=== PATIENT | male | born 1960 ===

== ENCOUNTER 2021-12-08 12:16 | Inpatient (IN) | payer OTHER ==
[~2021-12-08] VITALS: Wt 85.1 kg
[2021-12-08 15:53] LABS: PCO2 Arterial 34.1 mmHg (35-45); PO2 Arterial 101 mmHg (80-100); pH Blood Arterial 7.09 (7.35-7.45)
[2021-12-08 16:16] LABS: Hematocrit 37.8 % (37.0-53.0); Hemoglobin 12.5 g/dL (13.5-17.5); Mean Corpuscular HGB Conc 33.1 g/dL (31.5-36.5); Mean Corpuscular Volume 97 fL (80-100); Platelet Count 180 K/mm3 (150-400); RDW Standard Deviation 42.6 fL (35.1-46.3); Red Blood Cell Count 3.91 M/mm3 (4.30-5.90); White Blood Cell Count 6.65 K/mm3 (4.00-11.30)
[2021-12-08 16:36] LABS: Albumin, Blood 1.9 g/dL (3.4-5.0); Albumin/Globulin Ratio 1.1 (0.8-1.8); Bilirubin, Total 0.8 mg/dL (0.1-1.0); Bun/Creatinine Ratio 23.5 (12.0-20.0); Calcium, Blood 7.2 mg/dL (8.5-10.1); Creatinine, Blood 1.87 mg/dL (0.60-1.20); Globulin, Blood 1.7 g/dL (2.2-4.0); Potassium, Blood 4.9 mmol/L (3.5-5.5); Total Protein, Blood 3.6 g/dL (6.4-8.2)
--- NOTE | 2021-12-08 16:40 | NUR ---
SUMMARY NEURO; PT INTERMITTENTLY DECORTICATE POSTURING WITH BUE, BLE DECORTICATE WITH PAIN. NO BABINSKI RESPONSE. LEFT PUPIL SLUGGISH, RIGH PUPIL BRISK. WHEN TRYING TO ELICIT A COUGH, CORNEAL OR GAG REFLEX PT JUST POSTURES IN RESPONSE. PRIAPISM DUE TO PENIS PUMP. NEGATIVE HEAD CT IN [place]. LUNGS; PT IS ON AC/VC 16/450/50/P5 CARDIAC: PT IS ON LEVO OF 30, EPI 3, VASO.04, A BICARB DRIP OF 150MEQ/10ML/HR. PT WAS A WITNESSED ARREST OF APPROX 3040 MINUTES, CAME TO ER BY 10AM THEN TRANSFERRED FROM [place] TO [facility]. PT STARTED COOLING AT 1555 WITH ZOLL QUATRO CATHETER. PT INITIALLY HAD A LACTIC OF 23 AND HAS RECIEVED A TOTAL OF 4L NS VIA BOLUS. SKIN; PT HAS SUTURES ON LEFT EAR, ORAL TRAUMA, COOL TO TOUCH GI/; TEMP POTTS IN PLACE. NG TO LEFT NARE LIWS, BOWELS FULL OF STOOL PER [place] CT, ESOPHAGEAL TEMP CORD IN PLACE. PT MAY POSSIBLY HAVE POLST FORM WITH [facility] PER PT'S . PER CONTINUE WITH FULL CODE AT THIS TIME
[2021-12-08 17:21] LABS: BAND PERCENT MAN 32 % (0-8); BASOPHILS PERCENT MAN 0 % (0-2); EOSINOPHILS ABSOLUTE MAN 0.06 K/mm3 (0.00-0.68); EOSINOPHILS PERCENT MAN 1 % (0-6); LYMPHOCYTES % ATYPICAL MANUAL 1 % (0-0); LYMPHOCYTES ABSOLUTE MAN 1.52 K/mm3 (0.84-5.20); LYMPHOCYTES PERCENT MAN 22 % (21-46); METAMYELOCYTE ABSOLUTE MAN 0.73 K/mm3 (0.00-0.00); METAMYELOCYTE PERCENT MAN 11 % (0-0); MONOCYTES ABSOLUTE MAN 0.39 K/mm3 (0.16-1.47); MONOCYTES PERCENT MAN 6 % (4-13); NEUTROPHILS ABSOLUTE MAN 3.92 K/mm3 (1.96-9.15); SEG NEUTROPHILS PERCENT MAN 27 % (41-73); TOTAL CELLS COUNTED 100
[2021-12-08 17:49] LABS: International Normalized Ratio 1.67
--- NOTE | 2021-12-08 18:15 | NUR ---
COOLING STOPPED DUE TO COPIOUS BLEEDING AT FEM ACCESS SITES
--- NOTE | 2021-12-08 18:35 | NUR ---
Spiritual Care Visit. At the request of Palliative Care visited Pt. Pt. is unresponsive. Provided an EOL blessing that was requested by the family via Palliative Care.
--- NOTE | 2021-12-08 19:13 | NUR ---
Dr apple reviewed pt care and prognosis with .She understood his failty and possible demeise. Spoke with her after doctor spoke for theraputic conversation. She cannot drive at night reass[place] reafirmed that he would want her safe. confirmed he was DNr she states he has [facility] documents will request copies. We reviesd recussitation just to make sure she understoodShe understood the futility of more cpr. Advised her we will be with him. Sent chaplian to see him as she relayed they are devoute christians. Bedside assessment large pupils appears to be postuing. Stuggling with grain site ooozin and bleeding. pt on pressor support. kps score 10%. advised if urther decline or suffering she will get a call about making him comfort and allowing a natural passing. will follow up tomorrow.
[2021-12-08 20:06] LABS: PCO2 Arterial 32.7 mmHg (35-45); PO2 Arterial 66.5 mmHg (80-100)
[2021-12-08 20:12] LABS: pH Blood Arterial 7.03 (7.35-7.45)
[2021-12-08 21:12] LABS: Albumin, Blood 1.4 g/dL (3.4-5.0); Anion Gap 25 mmol/L (6-16); Blood Urea Nitrogen 45 mg/dL (8-24); Bun/Creatinine Ratio 22.7 (12.0-20.0); CO2, Blood 11 mmol/L (21-32); Calcium, Blood 6.3 mg/dL (8.5-10.1); Chloride, Blood 95 mmol/L (98-108); Creatinine, Blood 1.98 mg/dL (0.60-1.20); Glomerular Filtration Rate 34 (60-); Glucose, Blood 766 mg/dL (70-99); Phosphorus, Blood 7.2 mg/dL (2.5-4.9); Potassium, Blood 3.7 mmol/L (3.5-5.5); Sodium, Blood 131 mmol/L (136-145)
--- NOTE | 2021-12-08 21:33 | NUR ---
ASSUMED PT CARE FROM TIMOTHY, VANESSA AT 1915 PT INTUBATED. NOT SEDATED. VENT AC/VC 16, VT 450, PEEP 5, FIO2 50%, RR 26, SPO2 88-91%. UNRESPONSIVE AT THIS TIME. INWARD POSTURING NOTED TO BUE'S AND BLE'S, APPEARS TO BE DECEREBRATE POSTURING. PUPILS ARE ROUND AND EQUAL; 4MM, LEFT IS SLUGGISH TO LIGHT, AND RIGHT IS MORE BRISK. NO COUGH OR GAG REFLEX. PT IS OUT OF RESTRAINTS. CENTRAL LINE TO RIGHT GROIN INFUSING EPI AT 7MCG/MIN, LEVOPHED AT 30MCG/MIN, VASOPRESSIN AT 0.04 UNITS/MIN. BICARB AT 150MLS/HR WITH NEW ORDERS TO INCREASE TO 500ML/HR AND TO START NS AT 500ML/HR AFTER CALLING DR. KONG REGARDING CRITICAL LAB RESULTS. NEW ORDERS TO START AN INSULIN GTT WELL D/T GLUCOSE OF 766. LEFT GROIN HAS A COOLING CATHETER IN PLACE WITH A TARGET TEMP OF 96.0; CURRENT BODY TEMP IS 93.0. ART LINE TO LEFT GROIN WELL, WHICH BOTH ARE OOZING TREMENDOUS AMOUNTS OF BLOOD IN WHICH DR. KONG IS AWARE. NO DRESSING IN PLACE D/T OOZING; THEREFORE, EL, GAUZE, AND BLUE ABSORBENT PAD COVERING SITE WITH SAND BAG ON TOP FOR PRESSURE. TWO FFP INFUSING AT THIS TIME D/T OOZING SITE. PT HAS BEEN NSR WITH HR 80'S; BP'S STABLE AT THIS TIME, SEE FLOWSHEET. PT IS VERY PALE AND COLD. PULSES ARE FAINT TO BILATERAL RADIAL SITES, DORSALIS PEDIS IS BARELY HEARD VIA DOPPLER; STRONG BILATERAL TIBIAL PULSES OBTAINED VIA DOPPLER. POTTS CATHETER IS PATENT AND DRAINING TO GRAVITY; DARK TEA COLORED URINE. SEE SHIFT SUMMARY FOR FURTHER DETAILS.
[2021-12-08 23:49] LABS: Glucose, Blood 886 mg/dL (70-99)
[2021-12-09 00:38] LABS: PO2 Arterial 62.2 mmHg (80-100); pH Blood Arterial 7.15 (7.35-7.45)
[2021-12-09 01:02] LABS: Glucose, Blood 928 mg/dL (70-99)
[2021-12-09 02:23] LABS: Glucose, Blood 965 mg/dL (70-99)
--- NOTE | 2021-12-09 02:30 | NUR ---
FAMILY/PNTB UPDATE CALLED MELL TO UPDATE NEURO CHANGES AND INCREASED OF PRESSORS. MELL STATED,"IM NOT COMING OVER UNTIL MORNING". EXPLAINED THAT I WOULD CALL HER WHEN HE . EXPRESSED UNDERSTANDING STATING,"THE DOCTOR DID NOT THINK HE WOULD MAKE IT THIS LONG". UPDATED PNTB REGARDING NEURO CHANGES. BLOOD GLUCOSE UP TO 965, INCREASED INSULN GTT TO 30 UNITS/HR.
--- NOTE | 2021-12-09 03:22 | NUR ---
CHANGE IN CONDITION PT HAS BEEN MAXED ON ALL PRESSORS MOST OF SHIFT, BUT NONSTOP SINCE 0100. SODIUM BICARB INFUSING AT 500MLS/HR, WELL NS AT 500 ML/HR. BP'S ARE NOW SYSTOLIC IN THE 70'S WITH MAP'S IN THE 40'S. CALL MADE TO DR. KONG D/T GLUCOSE >900 WITH INSULIN MAXED AT 30 UNITS/HR. NEW ORDERS TO CHANGE BICARB 150MEQ'S IN 1L OF STERILE WATER; ORDERS ENTERED. VENT SETTINGS REMAIN UNCHANGED OTHER THAN FIO2 IS NOW AT 100% WITH SPO2 FLUCTUATING BETWEEN MID 80'S TO 90'S. RR 17. NEURO STATUS UNCHANGED. NEGATIVE DOLLS EYES. NEGATIVE CORNEAL REFLEX. PT STILL DECEREBRATE POSTURING. INFORMED DR. KONG OF URINE OUTPUT 20CC IN THE LAST 3 HOURS; NO NEW ORDERS. LEFT FEM SITE HAS STOPPED OOZING COPIOUS AMOUNTS AND IS CURRENTLY OOZING SCANT AMOUNTS WITH SAND BAGS STILL IN PLACE FOR PRESSURE. FAMILY HAS BEEN UPDATED WITH NO FURTHER QUESTIONS OR CONCERNS PER RAW SAMPLER.
[2021-12-09 03:26] LABS: Hematocrit 19.4 % (37.0-53.0); Hemoglobin 6.3 g/dL (13.5-17.5); Mean Corpuscular HGB 32.3 pg (26.0-34.0); Mean Corpuscular HGB Conc 32.5 g/dL (31.5-36.5); Mean Corpuscular Volume 100 fL (80-100); Platelet Count 87 K/mm3 (150-400); RDW Coefficient Variation 12.3 % (11.7-14.2); RDW Standard Deviation 44.5 fL (35.1-46.3); Red Blood Cell Count 1.95 M/mm3 (4.30-5.90); White Blood Cell Count 1.38 K/mm3 (4.00-11.30)
[2021-12-09 03:39] LABS: International Normalized Ratio 1.8; Prothrombin Time Results 18.2 Sec (9.7-11.5)
[2021-12-09 03:45] LABS: Albumin/Globulin Ratio 1.7 (0.8-1.8); Bilirubin, Total 0.7 mg/dL (0.1-1.0); Bun/Creatinine Ratio 19.7 (12.0-20.0); Calcium, Blood 5.5 mg/dL (8.5-10.1); Creatinine, Blood 2.03 mg/dL (0.60-1.20); Globulin, Blood 1.2 g/dL (2.2-4.0); Potassium, Blood 2.7 mmol/L (3.5-5.5); Total Protein, Blood 3.2 g/dL (6.4-8.2)
[2021-12-09 03:51] LABS: BAND PERCENT MAN 41 % (0-8); BASOPHILS PERCENT MAN 0 % (0-2); EOSINOPHILS PERCENT MAN 0 % (0-6); LYMPHOCYTES ABSOLUTE MAN 0.33 K/mm3 (0.84-5.20); LYMPHOCYTES PERCENT MAN 24 % (21-46); METAMYELOCYTE ABSOLUTE MAN 0.04 K/mm3 (0.00-0.00); METAMYELOCYTE PERCENT MAN 3 % (0-0); MONOCYTES ABSOLUTE MAN 0.01 K/mm3 (0.16-1.47); MONOCYTES PERCENT MAN 1 % (4-13); MYELOCYTE ABSOLUTE MAN 0.04 K/mm3 (0.00-0.00); MYELOCYTE PERCENT MAN 3 % (0-0); NEUTROPHILS ABSOLUTE MAN 0.95 K/mm3 (1.96-9.15); SEG NEUTROPHILS PERCENT MAN 28 % (41-73); TOTAL CELLS COUNTED 100
[2021-12-09 04:20] LABS: PCO2 Arterial 57.7 mmHg (35-45); PO2 Arterial 46.5 mmHg (80-100); pH Blood Arterial 7.04 (7.35-7.45)
[2021-12-09 04:53] LABS: Glucose, Blood 886 mg/dL (70-99)
--- NOTE | 2021-12-09 05:07 | NUR ---
END OF SHIFT SUMMARY NO SIGNICIANT CHANGES SINCE LAST ENTRY. VENT AC/VC 16, VT 450, PEEP 5, FIO2 100% WITH SPO2 92%, RR 16. NO SEDATION. NEURO ASSESSMENT REMAINS UNCHANGED. EPI INFUSING AT 10MCG/MIN, LEVOPHED AT 30MCG/MIN, AND VASOPRESSIN AT 0.04 UNITS/MIN. NS INFUSING AT 500ML/HR, AND 3AMPS OF SODIUM BICARB MIXED WITH STERILE WATER INFUSING AT 500ML/HR. INSULIN AT 30 UNITS/HR WITH GLUCOSE SLOWLY COMING DOWN SINCE CHANGING BICARB FROM DEXTROSE TO STERILE WATER. PT TEMP IS UP TO 95 DEGREES WITH A GOAL OF 96. POTTS CATH REMAINS PATENT, BUT DRAINING ONLY MINIMAL AMOUNTS OF URINE TO GRAVITY. PT IS PALE AND COOL WITH DUSKY/CYANOTIC BLE'S. NSR WITH PAC'S WITH RATE IN THE 60-70'S. SYSTOLIC BP'S 60'S WITH MAP'S IN THE 40'S; ALL PRESSORS ARE MAXED AT THIS TIME. WILL CONTINUE TO MONITOR UNTIL REPORT IS HANDED OFF TO ONCOMING RN.
[2021-12-09 05:51] LABS: Glucose, Blood 822 mg/dL (70-99)
--- NOTE | 2021-12-09 06:13 | NUR ---
TOD 0610 PT CONTINUED TO DROP BLOOD PRESSURE DESPITE MAXED ON PRESSORS. ART LINE BECAME FLAT WITH A WIDENED QRS COMPLEX. PT NOTED TO BE IN [facility] AT 0610. DR. JURADO AND DR. KONG NOTIFIED. ALSO NOTIFIED.
[2021-12-09 09:11] LABS: HBSAG SCREEN Negative (Negative); HEP A AB, IGM Negative (Negative); HEP B CORE AB, IGM Negative (Negative); HEP C VIRUS AB <0.1 (0.0-0.9)
== END 2021-12-09 11:54 | DRG 208 ==
LOC: ICUW 12:16
PROVIDERS: Internal Medicine Critical Care Medicine; ADMIT Internal Medicine
PROC: 04HL33Z Insertion of Infusion Device into Left Femoral Artery, Percutaneous Approach (ICD-10-PCS; principal; 2021-12-08)
PROC: 04HY32Z Insertion of Monitoring Device into Lower Artery, Percutaneous Approach (ICD-10-PCS; 2021-12-08)
PROC: 4A133B1 Monitoring of Arterial Pressure, Peripheral, Percutaneous Approach (ICD-10-PCS; 2021-12-08)
PROC: 4A133J1 Monitoring of Arterial Pulse, Peripheral, Percutaneous Approach (ICD-10-PCS; 2021-12-08)
PROC: 5A1935Z Respiratory Ventilation, Less than 24 Consecutive Hours (ICD-10-PCS; 2021-12-08)
PROC: 3E033XZ Introduction of Vasopressor into Peripheral Vein, Percutaneous Approach (ICD-10-PCS; 2021-12-08)
DX: J96.01 Acute respiratory failure with hypoxia (principal); E11.11 Type 2 diabetes mellitus with ketoacidosis with coma; G92.8 Other toxic encephalopathy; N17.9 Acute kidney failure, unspecified; E87.2 Acidosis; E87.1 Hypo-osmolality and hyponatremia; I49.01 Ventricular fibrillation; R57.1 Hypovolemic shock; K52.9 Noninfective gastroenteritis and colitis, unspecified; R74.01 Elevation of levels of liver transaminase levels; E78.5 Hyperlipidemia, unspecified; E11.40 Type 2 diabetes mellitus with diabetic neuropathy, unspecified; Z79.4 Long term (current) use of insulin; I95.9 Hypotension, unspecified; R11.2 Nausea with vomiting, unspecified; I46.2 Cardiac arrest due to underlying cardiac condition; G80.9 Cerebral palsy, unspecified; Z90.49 Acquired absence of other specified parts of digestive tract; Z79.899 Other long term (current) drug therapy; Z98.890 Other specified postprocedural states; E78.00 Pure hypercholesterolemia, unspecified
CPT/HCPCS: 36415; 36430; 36556; 36600; 36620; 71045; 80053; 80069; 80074; 82330; 82803; 82947; 83605; 83880; 84145; 84484; 85025; 85610; 86900; 86901; 87040; 94002; 94003; A9270; C9113; J0171; J0610; J1644; J1815; J7030; J7040; J7050; J7060; J7070; P9046; P9059